=== PATIENT | female | born 1950 | race African-American/Black ===

== ENCOUNTER 2016-12-14 06:42 | Day surgery (SDC) | payer OTHER ==
[2016-12-14] VITALS (8 sets, daily range): BP systolic 113–137; BP diastolic 50–82; PULSE 48–60; TEMP 97.2
[~2016-12-14] VITALS: Ht 157.5 cm; Wt 58.2 kg
[2016-12-14] MEDS ORDERED: FISH OIL 1000MG1 CAP PO (07:39)
[2016-12-14] MEDS ORDERED: ECHINACEA 5001 EACH PO (07:40)
[2016-12-14] MEDS ORDERED: RESTASIS 60VL OU (07:40)
== END 2016-12-14 10:15 | disposition home or self-care (01) ==
LOC: SDCO 06:42
DX: R19.5 Other fecal abnormalities (principal)
CPT/HCPCS: OP; J2250; J2704; J3010; J7120

== ENCOUNTER → 2017-12-06 | Outpatient (CLI) | payer MEDICARE, OTHER ==
[~2017-12-06] MED LIST: ECHINACEA 5001 EACH PO; FISH OIL 1000MG1 CAP PO; RESTASIS 60VL OU
== END ==
LOC: MC.RAD 07:25
DX: Z12.31 Encounter for screening mammogram for malignant neoplasm of breast (principal)

== ENCOUNTER → 2019-02-06 | Outpatient (CLI) | payer MEDICARE, OTHER | LOC: MC.RAD 14:29 | DX: Z12.31 Encounter for screening mammogram for malignant neoplasm of breast (principal) ==

== ENCOUNTER → 2020-02-29 | Outpatient (CLI) | payer MEDICARE, OTHER | LOC: MC.RAD 02-23 16:00 | DX: Z12.31 Encounter for screening mammogram for malignant neoplasm of breast (principal) ==

== ENCOUNTER → 2021-04-06 | Outpatient (CLI) | payer MEDICARE, OTHER | LOC: MC.RAD 03-22 09:00 | DX: Z12.31 Encounter for screening mammogram for malignant neoplasm of breast (principal) ==

== ENCOUNTER → 2022-05-23 | Outpatient (CLI) | payer MEDICARE, OTHER | LOC: MC.RAD 08:30 | DX: Z12.31 Encounter for screening mammogram for malignant neoplasm of breast (principal) ==

== ENCOUNTER 2023-09-05 03:36 | Emergency (ER) | payer MEDICARE, OTHER ==
[~2023-09-05] VITALS: Ht 154.9 cm; Wt 54.5 kg
[2023-09-05 03:39] VITALS: BP 134/85; TEMP 97.7
[2023-09-05] MEDS ORDERED: AMOXICILLIN875 MG PO (04:46)
[2023-09-05 04:57] VITALS: PULSE 67
== END 2023-09-05 04:57 | disposition home or self-care (01) ==
LOC: COL.ER 03:36
DX: H10.89 Other conjunctivitis (principal); Z88.1 Allergy status to other antibiotic agents

== ENCOUNTER → 2024-01-13 | Outpatient (CLI) | payer MEDICARE, OTHER ==
[~2024-01-13] MED LIST changes: +AMOXICILLIN875 MG PO
== END ==
LOC: MC.RAD 14:04
DX: Z12.31 Encounter for screening mammogram for malignant neoplasm of breast (principal)